=== PATIENT | female | born 1990 | race Caucasian/White ===

== ENCOUNTER 2018-11-04 18:31 | Emergency (ER) | payer SELFPAY ==
[2018-11-04] MEDS: ACETAMINOPHEN 325 MG TAB PO (20:57)
[2018-11-04 21:34] LABS: ADD MAN DIFF? NO
[2018-11-04 21:35] LABS: BASOPHILS % 0.4 % (0.0-2.0); EOSINOPHILS # 0.1 10^3/ul (0.0-0.5); EOSINOPHILS % 0.5 % (0.0-7.0); HEMATOCRIT 36.9 % (37.0-47.0); LYMPHOCYTES # 2.2 10^3/ul (0.8-2.9); LYMPHOCYTES % 22.3 % (15.0-51.0); MEAN CORPUSCULAR HEMOGLOBIN 30.2 pg (29.0-33.0); MEAN CORPUSCULAR HGB CONC 35.2 g/dl (32.0-37.0); MEAN CORPUSCULAR VOLUME 85.6 fl (82.0-101.0); MEAN PLATELET VOLUME 8.6 fl (7.4-10.4); MONOCYTE # 0.5 10^3/ul (0.3-0.9); MONOCYTES % 5.1 % (0.0-11.0); NEUTROPHIL # 7.1 10^3/ul (1.6-7.5); NEUTROPHILS % 71.5 % (39.0-77.0); PLATELET COUNT 257 10^3/UL (140-415); RED BLOOD COUNT 4.31 10^6/ul (4.20-5.40)
[2018-11-04] MEDS: HYDROCODONE/APAP (5/325) TAB PO (22:46)
[2018-11-04] MEDS: ONDANSETRON (ODT) 4 MG TAB ODT (22:46)
== END 2018-11-05 00:36 | disposition home or self-care (01) ==
LOC: FTE 11-05 00:36
DX: O20.9 Hemorrhage in early pregnancy, unspecified (principal); R10.2 Pelvic and perineal pain; Z3A.08 8 weeks gestation of pregnancy
CPT/HCPCS: 76801; 84702; 85025; 86900; 86901; 99284-25

== ENCOUNTER 2018-11-06 16:22 | Emergency (ER) | payer SELFPAY ==
[2018-11-06] MEDS: ACETAMINOPHEN 500 MG TAB PO (18:56)
[2018-11-06 19:12] LABS: ADD MAN DIFF? NO
[2018-11-06 19:13] LABS: WHITE BLOOD COUNT 7.4 10^3/ul (4.8-10.8)
[2018-11-06 19:13] LABS: BASOPHILS % 0.5 % (0.0-2.0); EOSINOPHILS # 0.2 10^3/ul (0.0-0.5); HEMATOCRIT 31.5 % (37.0-47.0); HEMOGLOBIN 10.9 g/dl (12.0-16.0); LYMPHOCYTES # 3.2 10^3/ul (0.8-2.9); LYMPHOCYTES % 42.7 % (15.0-51.0); MEAN CORPUSCULAR HEMOGLOBIN 30.2 pg (29.0-33.0); MEAN CORPUSCULAR HGB CONC 34.6 g/dl (32.0-37.0); MEAN CORPUSCULAR VOLUME 87.3 fl (82.0-101.0); MEAN PLATELET VOLUME 8.9 fl (7.4-10.4); MONOCYTE # 0.4 10^3/ul (0.3-0.9); MONOCYTES % 5.4 % (0.0-11.0); NEUTROPHIL # 3.6 10^3/ul (1.6-7.5); PLATELET COUNT 254 10^3/UL (140-415); RED BLOOD COUNT 3.61 10^6/ul (4.20-5.40); RED CELL DISTRIBUTION WIDTH 12.3 % (11.5-14.5)
[2018-11-06 19:32] LABS: ADD UMIC YES; UR ASCORBIC ACID NEGATIVE (NEGATIVE); UR BACTERIA FEW /HPF (NONE SEEN); UR BILIRUBIN (Dip) NEGATIVE (NEGATIVE); UR BLOOD (Dip) 3+ mg/dL (NEGATIVE); UR CLARITY CLEAR (CLEAR); UR COLOR STRAW (YELLOW); UR GLUCOSE (Dip) NEGATIVE (NEGATIVE); UR KETONES (Dip) NEGATIVE (NEGATIVE); UR LEUKOCYTE ESTERASE (Dip) NEGATIVE Leu/ul (NEGATIVE); UR NITRITE (Dip) NEGATIVE (NEGATIVE); UR RBC 31 /HPF (0-5); UR SPECIFIC GRAVITY (Dip) 1.006 (1.003-1.030); UR SQUAMOUS EPITHELIAL CELL FEW /HPF (FEW); UR TOTAL PROTEIN (Dip) NEGATIVE (NEGATIVE); UR UROBILINOGEN (Dip) NEGATIVE (NEGATIVE); UR WBC 2 /HPF (0-5)
== END 2018-11-06 20:30 | disposition home or self-care (01) ==
LOC: FTE 20:30
DX: O03.9 Complete or unspecified spontaneous abortion without complication (principal)
CPT/HCPCS: 36415; 76801; 81001; 84702; 85025; 99284-25